=== PATIENT | male | born 1980 | race Two or more races ===

== ENCOUNTER 2019-01-31 09:07 | Inpatient (IN) | payer OTHER ==
[2019-01-31 09:58] VITALS: BMI 30.1
--- NOTE | 2019-01-31 11:36 | HP ---
CIWA Score Nausea/Vomitin Muscle Tremors: 2 Anxiety: 2 Agitation: 2 Paroxysmal Sweats: 1-Minimal Palms Moist Orientation: 0-Oriented Tacttile Disturbances: 1-Very Mild Itch/Numbness Auditory Disturbances: 1-Very Mild Visual Disturbances: 0-None Headache: 2-Mild CIWA-Ar Total Score: 13 - Admission Criteria OASAS Guidelines: Admission for Medically Managed Detox: Requires at least one of the followin. CIWA greater than 12 2. Seizures within the past 24 hours 3. Delirium tremens within the past 24 hours 4. Hallucinations within the past 24 hours 5. Acute intervention needed for co occurring medical disorder 6. Acute intervention needed for co occurring psychiatric disorder 7. Severe withdrawal that cannot be handled at a lower level of care (continued vomiting, continued diarrhea, abnormal vital signs) requiring intravenous medication and/or fluids 8. Admission ROS BHS - HPI Chief Complaint: i need help to stop drinking alcohol,crack,marijuana and k2 Allergies/Adverse Reactions: Allergies Allergy/AdvReac Type Severity Reaction Status Date / Time grape Allergy Verified 01/31/19 12:01 grape juice Allergy Uncoded 01/31/19 10:43 History of Present Illness: this 39 years old male with alcohol,crack,marijuana,k2 dependence,seeking help in detox,withdrawal symptom,never been in detox before, syncope alcohol related nicotine dependence 2 or 3 cigarette anxiety,depression,insomnia,previous psychiatric hospitalization fx of 4th and 5th metacarpal head on Tue01/29/19 seen and treated at [facility],had right hand splint paln for rehab after detox Exam Limitations: No Limitations - Ebola screening Have you traveled outside of the country in the last 21 days: No Have you had contact with anyone from an Ebola affected area: No Have you been sick,other than usual withdrawal symptoms: No Do you have a fever: No - Review of Systems Constitutional: Loss of Appetite, Malaise, Night Sweats, Changes in sleep, Weakness EENT: reports: Nose Congestion Respiratory: reports: No Symptoms reported Cardiac: reports: No Symptoms Reported GI: reports: Nausea, Abdominal cramping : reports: No Symptoms Reported Musculoskeletal: reports: Muscle Pain Integumentary: reports: Dryness Neuro: reports: Headache, Tremors Hematology: reports: Anemia Psychiatric: reports: No Sypmtoms Reported, Judgement Intact, Mood/Affect Appropiate, Orientated x3, Anxious, Depressed, other (insomnia) Other Systems: Reviewed and Negative Patient History - Patient Medical History Hx Anemia: Yes (no medication) Hx Asthma: No Hx Chronic Obstructive Pulmonary Disease (COPD): No Hx Cancer: No Hx Cardiac Disorders: No Hx Congestive Heart Failure: No Hx Hypertension: No Hx Hypercholesterolemia: No Hx Pacemaker: No HX Cerebrovascular Accident: No Hx Seizures: No Hx Dementia: No Hx Diabetes: No Hx Gastrointestinal Disorders: No Hx Liver Disease: No Hx Genitourinary Disorders: No Hx Sexually Transmitted Disorders: No Hx Renal Disease (ESRD): No Hx Thyroid Disease: No Hx Human Immunodeficiency Virus (HIV): No (last 01/30 negative) Hx Hepatitis C: No Hx Depression: Yes (anxiety,insomnia) Hx Suicide Attempt: No Hx Bipolar Disorder: No Hx Schizophrenia: No Other Medical History: hospitalization for depression in the past 3 months at [facility] - Patient Surgical History Past Surgical History: No Other Surgical History: - PPD History Previous Implant?: Yes Documented Results: Negative w/o proof Implanted On Prior [facility] Admission?: No PPD to be Administered?: Yes - Smoking Cessation Smoking history: Current every day smoker Have you smoked in the past 12 months: Yes Aproximately how many cigarettes per day: 3 Hx Chewing Tobacco Use: No Initiated information on smoking cessation: Yes 'Breaking Loose' booklet given: 01/31/19 - Substance & Tx. History Hx Alcohol Use: Yes Hx Substance Use: Yes Substance Use Type: Alcohol, Cocaine, Marijuana Hx Substance Use Treatment: No - Substances Abused Alcohol Route: Oral Frequency: Daily Amount used: 8 beers ( 16 ounces), 1 shot Liquor Age of first use: 13 Date of Last Use: 01/31/19 Marijuana/Hashish Route: Smoking Frequency: 1-2 times per week Amount used: $20 Age of first use: 11 Date of Last Use: 01/30/19 crcack Route: Smoking Frequency: Daily Amount used: $20 Age of first use: 17 Date of Last Use: 01/31/19 K2 Route: Smoking Frequency: 1-3 times last 30 days Amount used: 1 stick Age of first use: 38 Date of Last Use: 01/28/19 Family Disease History - Family Disease History Family Disease History: Other: Father (alcohol) Admission Physical Exam BHS - Vital Signs Vital Signs: Vital Signs - 24 hr 01/31/19 09:56 Temperature 97 F L Pulse Rate 75 Respiratory 19 Rate Blood Pressure 102/60 - Physical General Appearance: Yes: Moderate Distress, Tremorous, Irritable, Sweating, Anxious HEENTM: Yes: Normal ENT Inspection, ROSANGELA, Pharynx Normal Respiratory: Yes: Within Normal Limits, Lungs Clear, Normal Breath Sounds Neck: Yes: Within Normal Limits, Supple, Trachea in good position Breast: Yes: Within Normal Limits Cardiology: Yes: Within Normal Limits, Regular Rhythm, Regular Rate, S1, S2 Abdominal: Yes: Within Normal Limits, Normal Bowel Sounds, Non Tender, Soft Genitourinary: Yes: Within Normal Limits Back: Yes: Muscle Spasm Musculoskeletal: Yes: Back pain, Muscle Pain Extremities: Yes: Tremors, Other (right hand in splint treated for fx of 4th and 5th metacarpal on Tue01/29/19) Neurological: Yes: 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 NML intact, Motor Strength 5/5 Integumentary: Yes: Dry Lymphatic: Yes: Within Normal Limits - Diagnostic (1) Alcohol dependence with uncomplicated withdrawal Current Visit: Yes Status: Acute (2) Cocaine dependence Current Visit: Yes Status: Acute (3) Marijuana dependence Current Visit: Yes Status: Acute (4) Nicotine dependence Current Visit: Yes Status: Acute (5) Anxiety and depression Current Visit: Yes Status: Acute (6) Insomnia Current Visit: Yes Status: Acute (7) History of fracture of hand Current Visit: Yes Status: Acute Cleared for Admission [facility] - Detox or Rehab [facility] Level of Care: Medically Managed Detox Regimen/Protocol: Librium [facility] Breath Alcohol Content Breath Alcohol Content: 0 Urine Drug Screen - Results Drug Screen Negative: No Urine Drug Screen Results: THC-Marijuana, ADEN-Cocaine Inpatient Rehab Admission - Rehab Decision to Admit Inpatient rehab admission?: No
[2019-01-31] MEDS ORDERED: hydrOXYzine PAMOATE 25 MG CAPSULE (FP) PO PRN (11:50)
[2019-01-31] MEDS ORDERED: BISMUTH SUBSALICYLATE 524 MG/30 ML UD PO PRN (11:50)
[2019-01-31] MEDS ORDERED: MAGNESIUM CITRATE 300 ML BOTTLE PO PRN (11:50)
[2019-01-31] MEDS ORDERED: MAGNESIUM HYDROX 2400MG/30ML ORAL SUSPENSION 30 ML CUP PO PRN (11:50)
[2019-01-31] MEDS ORDERED: MELATONIN 5 MG TABLETS PO PRN (11:50)
[2019-01-31] MEDS ORDERED: MAG HYDROX/AL HYDROX/SIMETH 30 ML UNIT-DOSE CUP PO PRN (11:50)
[2019-01-31] MEDS ORDERED: chlordiazePOXIDE HCL 25 MG CAPSULE PO PRN (11:50)
[2019-01-31] MEDS ORDERED: MENTHOL/PHENOL 1 EACH UD MM PRN (11:50)
[2019-01-31] MEDS ORDERED: METHOCARBAMOL 500 MG TABLET PO PRN (11:50)
[2019-01-31] MEDS ORDERED: ACETAMINOPHEN 325 MG TABLET (FP) PO PRN ×2 (11:50)
--- NOTE | 2019-01-31 14:06 | EKG ---
Test Reason : Blood Pressure : / mmHG Vent. Rate : 065 BPM Atrial Rate : 065 BPM P-R Int : 174 ms QRS Dur : 090 ms QT Int : 432 ms P-R-T Axes : 057 032 026 degrees QTc Int : 449 ms NORMAL SINUS RHYTHM NORMAL ECG NO PREVIOUS ECGS AVAILABLE Confirmed by LILLY MACKEY, IBETH ([id number]) on 01/31/2019 2:06:01 PM Referred By: Confirmed By:IBETH CARR MD
[2019-01-31] MEDS: chlordiazePOXIDE HCL 25 MG CAPSULE PO SCH ×2 (18:43→22:46)
[2019-01-31] MEDS: THIAMINE HCL 100 MG TABLET (FP) PO SCH (22:45)
[2019-01-31 23:09] LABS: EPI CELLS 0.2 /HPF (FEW); HYALINE CASTS 1 /hpf (NEGATIVE); URINE APPEARANCE TURBID; URINE BACTERIA 5.4 /hpf (NEGATIVE); URINE BILIRUBIN NEGATIVE (<2.0 mg/dL); URINE COLOR YELLOW; URINE GLUCOSE (UA) NEGATIVE (NEGATIVE); URINE KETONE NEGATIVE (NEGATIVE); URINE LEUK ESTERASE NEGATIVE (NEGATIVE); URINE NITRITE NEGATIVE (NEGATIVE); URINE PROTEIN NEGATIVE (NEGATIVE); URINE RBC 1 /hpf (0-3); URINE UROBILINOGEN 0.2 mg/dL (0.2-1.0); URINE WBC 0 /hpf (3-5)
[2019-02-01] MEDS: chlordiazePOXIDE HCL 25 MG CAPSULE PO SCH ×4 (06:18→22:44)
--- NOTE | 2019-02-01 09:00 | CONSULT ---
[facility] Psychiatric Consult - Data Date of interview: 02/01/19 Admission source: [facility] Identifying data: Patient is a 39 year old single male, without children, unemployed, and is supported by [facility]. This is patient's first admission to detox at [facility]. Patient admitted to for alcohol, cocaine, and marijuana dependence. Substance Abuse History: Substance & Tx. History. Hx Alcohol Use: Yes. Hx Substance Use: Yes. Substance Use Type: Alcohol, Cocaine, Marijuana. Hx Substance Use Treatment: No. - Substances Abused. Alcohol. Route: Oral. Frequency: Daily. Amount used: 8 beers ( 16 ounces), 1 shot Liquor. Age of first use: 13. Date of Last Use: 01/31/19. Marijuana/Hashish. Route: Smoking. Frequency: 1-2 times per week. Amount used: $20. Age of first use: 11. Date of Last Use: 01/30/19. crcack. Route: Smoking. Frequency: Daily. Amount used: $20. Age of first use: 17. Date of Last Use: 01/31/19. K2. Route: Smoking. Frequency: 1-3 times last 30 days. Amount used: 1 stick. Age of first use: 38. Date of Last Use: 01/28/19 Medical History: anemia Psychiatric History: Patient's first psychiatric contact was at 20 years of age after endorsing auditory hallucinations secondary to drug use. He was admitted to [facility] and was prescribed psychotropic medications ( unable to recall names of medications). Patient is also known to [facility] , [facility], [facility] and facilities in [place]. Patient was recently admitted to the [facility] psychiatric unit from december -January after exhibiting paranoid ideation of thinking people were coming after him. Patient is followed by the [facility] in [place]. Self reports diagnosis of Schizoaffective disorder. As per patient he was recently given haldol deconate 100mg on 01/30/19 (appears to be a reliable historian). Patient is prescribed haldol 5mg daily + cogentin 1mg daily + Seroquel 100mg HS. Patient denies h/o suicide attempt. At present, patient reports stable mood and denies auditory/ visual hallucinations and paranoid ideation. No psychosis noted. Physical/Sexual Abuse/Trauma History: There is a history of trauma but patient refused to elaborate. Mental Status Exam - Mental Status Exam Alert and Oriented to: Time, Place, Person Cognitive Function: Good Patient Appearance: Well Groomed Mood: Euthymic Affect: Appropriate Patient Behavior: Appropriate, Cooperative Speech Pattern: Clear, Appropriate Voice Loudness: Normal Thought Process: Intact, Goal Oriented Thought Disorder: Not Present Hallucinations: Denies Suicidal Ideation: Denies Homicidal Ideation: Denies Insight/Judgement: Poor Sleep: Fair Appetite: Fair Muscle strength/Tone: Normal Gait/Station: Normal Psychiatric Findings - Problem List ([place] 1, 2,3) (1) Schizoaffective disorder Current Visit: Yes Status: Chronic (2) Alcohol dependence with uncomplicated withdrawal Current Visit: Yes Status: Acute (3) Marijuana dependence Current Visit: Yes Status: Chronic (4) Nicotine dependence Current Visit: Yes Status: Acute - Initial Treatment Plan Initial Treatment Plan: Psychoeducation provided. Detoxification in progress. Will order haldol 5mg daily + Cogentin 1mg daily + Seroquel 100mg HS. Benefits and side effects discussed. Verbal consent given.
[2019-02-01] MEDS: PRENATAL VITAMINS W/ FOLIC ACID TABLET (FP) PO SCH (10:06)
[2019-02-01] MEDS: BENZTROPINE MESYLATE 1 MG TABLET (FP) PO SCH (10:06)
[2019-02-01] MEDS: HALOPERIDOL 5 MG TABLET (FP) PO SCH (10:06)
[2019-02-01 11:04] LABS: HEMATOCRIT 34.9 % (35.4-49); HEMOGLOBIN 12.1 GM/dL (11.7-16.9); MCH 32.2 pg (25.7-33.7); MCHC 34.7 g/dl (32.0-35.9); MEAN CELL VOLUME 92.9 fl (80-96); MEAN PLT VOLUME 9.5 fl (7.5-11.1); PLATELET COUNT 172 K/MM3 (134-434); RBC 3.75 M/mm3 (4.00-5.60); RDW 13.9 % (11.9-15.9); WHITE BLOOD COUNT 4.6 K/mm3 (4.0-10.0)
[2019-02-01 11:54] LABS: SICKLE CELL SCREEN NEGATIVE (NEGATIVE)
[2019-02-01 13:21] LABS: ALBUMIN 3.9 g/dl (3.4-5.0); ALK PHOS 61 U/L (45-117); BILIRUBIN,TOTAL < 0.1 mg/dL (0.2-1); BLOOD UREA NITROGEN 13 mg/dL (7-18); CALCIUM 8.6 mg/dL (8.5-10.1); CHLORIDE 109 mmol/L (98-107); CREATININE 0.9 mg/dL (0.55-1.3); GLUCOSE,RANDOM 93 mg/dL (74-106); POTASSIUM 4.3 mmol/L (3.5-5.1); SGPT/ALT 20 U/L (13-61); SODIUM 142 mmol/L (136-145); TOT PROT 6.8 g/dl (6.4-8.2)
[2019-02-01 13:55] LABS: ANION GAP 6 MMOL/L (8-16); CO2 27 mmol/L (21-32); SGOT/AST 17 U/L (15-37)
--- NOTE | 2019-02-01 14:06 | PN ---
[facility] CIWA - CIWA Score Nausea/Vomitin-No Nausea/No Vomiting Muscle Tremors: 3 Anxiety: 2 Agitation: 3 Paroxysmal Sweats: 1-Minimal Palms Moist Orientation: 0-Oriented Tacttile Disturbances: 0-None Auditory Disturbances: 0-None Visual Disturbances: 0-None Headache: 1-Very Mild CIWA-Ar Total Score: 10 S Progress Note (SOAP) Subjective: mild tremor otherwise doing well social with peers in day room Objective: 02/01/19 14:05 Vital Signs Temperature 97.4 F L 02/01/19 13:30 Pulse Rate 76 02/01/19 13:30 Respiratory Rate 18 02/01/19 13:30 Blood Pressure 114/65 02/01/19 13:30 O2 Sat by Pulse Oximetry (%) Laboratory Last Values WBC 4.6 K/mm3 (4.0-10.0) 02/01/19 06:30 RBC 3.75 M/mm3 (4.00-5.60) L 02/01/19 06:30 Hgb 12.1 GM/dL (11.7-16.9) 02/01/19 06:30 Hct 34.9 % (35.4-49) L 02/01/19 06:30 MCV 92.9 fl (80-96) 02/01/19 06:30 MCH 32.2 pg (25.7-33.7) 02/01/19 06:30 MCHC 34.7 g/dl (32.0-35.9) 02/01/19 06:30 RDW 13.9 % (11.9-15.9) 02/01/19 06:30 Plt Count 172 K/MM3 (134-434) 02/01/19 06:30 MPV 9.5 fl (7.5-11.1) 02/01/19 06:30 Sickle Cell Screen Negative (NEGATIVE) 02/01/19 06:30 Sodium 142 mmol/L (136-145) 02/01/19 06:30 Potassium 4.3 mmol/L (3.5-5.1) 02/01/19 06:30 Chloride 109 mmol/L (98-107) H 02/01/19 06:30 Carbon Dioxide 27 mmol/L (21-32) 02/01/19 06:30 Anion Gap 6 MMOL/L (8-16) L 02/01/19 06:30 BUN 13 mg/dL (7-18) 02/01/19 06:30 Creatinine 0.9 mg/dL (0.55-1.3) 02/01/19 06:30 Creat Clearance w eGFR 94.95 (>60) 02/01/19 06:30 Random Glucose 93 mg/dL (74-106) 02/01/19 06:30 Calcium 8.6 mg/dL (8.5-10.1) 02/01/19 06:30 Total Bilirubin < 0.1 mg/dL (0.2-1) L 02/01/19 06:30 AST 17 U/L (15-37) 02/01/19 06:30 ALT 20 U/L (13-61) 02/01/19 06:30 Alkaline Phosphatase 61 U/L (45-117) 02/01/19 06:30 Total Protein 6.8 g/dl (6.4-8.2) 02/01/19 06:30 Albumin 3.9 g/dl (3.4-5.0) 02/01/19 06:30 Urine Color Yellow 01/31/19 18:35 Urine Appearance Turbid 01/31/19 18:35 Urine pH 6.0 (5.0-8.0) 01/31/19 18:35 Ur Specific [place] 1.020 (1.010-1.035) 01/31/19 18:35 Urine Protein Negative (NEGATIVE) 01/31/19 18:35 Urine Glucose (UA) Negative (NEGATIVE) 01/31/19 18:35 Urine Ketones Negative (NEGATIVE) 01/31/19 18:35 Urine Blood Negative (NEGATIVE) 01/31/19 18:35 Urine Nitrite Negative (NEGATIVE) 01/31/19 18:35 Urine Bilirubin Negative (<2.0 mg/dL) 01/31/19 18:35 Urine Urobilinogen 0.2 mg/dL (0.2-1.0) 01/31/19 18:35 Ur Leukocyte Esterase Negative (NEGATIVE) 01/31/19 18:35 Urine WBC (Auto) 0 /hpf (3-5) 01/31/19 18:35 Urine RBC (Auto) 1 /hpf (0-3) 01/31/19 18:35 Urine Casts (Auto) 1 /hpf (NEGATIVE) 01/31/19 18:35 U Epithel Cells (Auto) 0.2 /HPF (FEW) 01/31/19 18:35 Urine Bacteria (Auto) 5.4 /hpf (NEGATIVE) 01/31/19 18:35 RPR Titer Nonreactive (NONREACTIVE) 02/01/19 06:30 HIV 1&2 Antibody Screen Negative 01/31/19 12:30 HIV P24 Antigen Negative 01/31/19 12:30 lab noted Assessment: 02/01/19 14:06 withdrawal sx Plan: continue detox
[2019-02-01] MEDS: THIAMINE HCL 100 MG TABLET (FP) PO SCH (22:44)
[2019-02-01] MEDS: QUEtiapine FUMARATE 100 MG TABLET (FP) PO SCH (22:44)
[2019-02-01] MEDS: IBUPROFEN 400 MG TABLET (FP) PO PRN (23:04)
[2019-02-02] MEDS: chlordiazePOXIDE HCL 25 MG CAPSULE PO SCH ×2 (07:24→10:16)
[2019-02-02] MEDS: IBUPROFEN 400 MG TABLET (FP) PO PRN (10:15)
[2019-02-02] MEDS: PRENATAL VITAMINS W/ FOLIC ACID TABLET (FP) PO SCH (10:15)
[2019-02-02] MEDS: HALOPERIDOL 5 MG TABLET (FP) PO SCH (10:15)
[2019-02-02] MEDS: BENZTROPINE MESYLATE 1 MG TABLET (FP) PO SCH (10:16)
--- NOTE | 2019-02-02 16:54 | PN ---
S CIWA - CIWA Score Nausea/Vomitin-No Nausea/No Vomiting Muscle Tremors: 2 Anxiety: 2 Agitation: 1-Slight > Activity Paroxysmal Sweats: No Perspiration Orientation: 2-Disoriented Date<2 days Tacttile Disturbances: 2-Mild Itch/Numbness/Burn Auditory Disturbances: 1-Very Mild Visual Disturbances: 2-Mild Sensitivity Headache: 0-None Present CIWA-Ar Total Score: 12 BHS Progress Note (SOAP) Subjective: Tremors, Anxious. Objective: PATIENT A & O X 2 (UNCERTAIN ABOUT CURRENT DAY / DATE). PATIENT OBSERVED AMBULATING ON UNIT. IN NO ACUTE DISTRESS. 02/02/19 16:55 Vital Signs Temperature 98.4 F 02/02/19 13:51 Pulse Rate 93 H 02/02/19 13:51 Respiratory Rate 16 02/02/19 13:51 Blood Pressure 100/55 L 02/02/19 13:51 O2 Sat by Pulse Oximetry (%) Laboratory Tests 01/31/19 01/31/19 02/01/19 12:30 18:35 06:30 WBC 4.6 RBC 3.75 L Hgb 12.1 Hct 34.9 L MCV 92.9 MCH 32.2 MCHC 34.7 RDW 13.9 Plt Count 172 MPV 9.5 Sickle Cell Screen Negative Sodium Potassium Chloride Carbon Dioxide Anion Gap BUN Creatinine Creat Clearance w eGFR Random Glucose Calcium Total Bilirubin AST ALT Alkaline Phosphatase Total Protein Albumin Urine Color Yellow Urine Appearance Turbid Urine pH 6.0 Ur Specific [place] 1.020 Urine Protein Negative Urine Glucose (UA) Negative Urine Ketones Negative Urine Blood Negative Urine Nitrite Negative Urine Bilirubin Negative Urine Urobilinogen 0.2 Ur Leukocyte Esterase Negative Urine WBC (Auto) 0 Urine RBC (Auto) 1 Urine Casts (Auto) 1 U Epithel Cells (Auto) 0.2 Urine Bacteria (Auto) 5.4 RPR Titer HIV 1&2 Antibody Screen Negative HIV P24 Antigen Negative 02/01/19 02/01/19 06:30 06:30 WBC RBC Hgb Hct MCV MCH MCHC RDW Plt Count MPV Sickle Cell Screen Sodium 142 Potassium 4.3 Chloride 109 H Carbon Dioxide 27 Anion Gap 6 L BUN 13 Creatinine 0.9 Creat Clearance w eGFR 94.95 Random Glucose 93 Calcium 8.6 Total Bilirubin < 0.1 L AST 17 ALT 20 Alkaline Phosphatase 61 Total Protein 6.8 Albumin 3.9 Urine Color Urine Appearance Urine pH Ur Specific [place] Urine Protein Urine Glucose (UA) Urine Ketones Urine Blood Urine Nitrite Urine Bilirubin Urine Urobilinogen Ur Leukocyte Esterase Urine WBC (Auto) Urine RBC (Auto) Urine Casts (Auto) U Epithel Cells (Auto) Urine Bacteria (Auto) RPR Titer Nonreactive HIV 1&2 Antibody Screen HIV P24 Antigen LABS NOTED. Assessment: 02/02/19 16:56 WITHDRAWAL SYMPTOMS. HYPOTENSION. Plan: CONTINUE DETOX. INCREASE DAILY PO FLUID INTAKE.
[2019-02-02] MEDS ORDERED: chlordiazePOXIDE HCL 10 MG CAPSULE PO PRN (17:00)
[2019-02-02] MEDS: chlordiazePOXIDE HCL 10 MG CAPSULE PO SCH ×2 (17:22→22:08)
[2019-02-02] MEDS: THIAMINE HCL 100 MG TABLET (FP) PO SCH (22:08)
[2019-02-02] MEDS: QUEtiapine FUMARATE 100 MG TABLET (FP) PO SCH (22:08)
[2019-02-03] MEDS: IBUPROFEN 400 MG TABLET (FP) PO PRN (04:17)
[2019-02-03] MEDS: chlordiazePOXIDE HCL 10 MG CAPSULE PO SCH ×3 (05:20→17:45)
[2019-02-03] MEDS: PRENATAL VITAMINS W/ FOLIC ACID TABLET (FP) PO SCH (10:38)
[2019-02-03] MEDS: HALOPERIDOL 5 MG TABLET (FP) PO SCH (10:38)
[2019-02-03] MEDS: BENZTROPINE MESYLATE 1 MG TABLET (FP) PO SCH (10:38)
--- NOTE | 2019-02-03 14:48 | PN ---
BHS Progress Note (SOAP) Subjective: Tremors, Anxious, Fatigue. Objective: PATIENT A & O X 3, OBSERVED AMBULATING ON UNIT. IN NO ACUTE DISTRESS. 02/03/19 14:47 Vital Signs Temperature 98.4 F 02/03/19 09:35 Pulse Rate 85 02/03/19 13:33 Respiratory Rate 16 02/03/19 13:33 Blood Pressure 97/64 02/03/19 13:33 O2 Sat by Pulse Oximetry (%) Laboratory Tests 01/31/19 01/31/19 02/01/19 12:30 18:35 06:30 WBC 4.6 RBC 3.75 L Hgb 12.1 Hct 34.9 L MCV 92.9 MCH 32.2 MCHC 34.7 RDW 13.9 Plt Count 172 MPV 9.5 Sickle Cell Screen Negative Sodium Potassium Chloride Carbon Dioxide Anion Gap BUN Creatinine Creat Clearance w eGFR Random Glucose Calcium Total Bilirubin AST ALT Alkaline Phosphatase Total Protein Albumin Urine Color Yellow Urine Appearance Turbid Urine pH 6.0 Ur Specific [place] 1.020 Urine Protein Negative Urine Glucose (UA) Negative Urine Ketones Negative Urine Blood Negative Urine Nitrite Negative Urine Bilirubin Negative Urine Urobilinogen 0.2 Ur Leukocyte Esterase Negative Urine WBC (Auto) 0 Urine RBC (Auto) 1 Urine Casts (Auto) 1 U Epithel Cells (Auto) 0.2 Urine Bacteria (Auto) 5.4 RPR Titer HIV 1&2 Antibody Screen Negative HIV P24 Antigen Negative 02/01/19 02/01/19 06:30 06:30 WBC RBC Hgb Hct MCV MCH MCHC RDW Plt Count MPV Sickle Cell Screen Sodium 142 Potassium 4.3 Chloride 109 H Carbon Dioxide 27 Anion Gap 6 L BUN 13 Creatinine 0.9 Creat Clearance w eGFR 94.95 Random Glucose 93 Calcium 8.6 Total Bilirubin < 0.1 L AST 17 ALT 20 Alkaline Phosphatase 61 Total Protein 6.8 Albumin 3.9 Urine Color Urine Appearance Urine pH Ur Specific [place] Urine Protein Urine Glucose (UA) Urine Ketones Urine Blood Urine Nitrite Urine Bilirubin Urine Urobilinogen Ur Leukocyte Esterase Urine WBC (Auto) Urine RBC (Auto) Urine Casts (Auto) U Epithel Cells (Auto) Urine Bacteria (Auto) RPR Titer Nonreactive HIV 1&2 Antibody Screen HIV P24 Antigen LABS NOTED. Assessment: 02/03/19 14:47 WITHDRAWAL SYMPTOMS. HYPOTENSION. 02/03/19 14:48 Plan: CONTINUE DETOX. INCREASE DAILY PO FLUID INTAKE. ENCOURAGE AMBULATION.
[2019-02-03] MEDS: QUEtiapine FUMARATE 100 MG TABLET (FP) PO SCH (22:39)
[2019-02-03] MEDS: THIAMINE HCL 100 MG TABLET (FP) PO SCH (22:39)
[2019-02-04] MEDS: chlordiazePOXIDE HCL 10 MG CAPSULE PO SCH (06:47)
--- NOTE | 2019-02-04 09:41 | DS ---
[facility] Detox Discharge Summary Admission Date: 01/31/19 Discharge Date: 02/04/19 - History Present History: Alcohol Dependence Additional Comments: 39 years old male admitted on 01/31/19 for alcohol withdrawal stabilization completed alcohol detox regimen aftercare [facility] orthopedic follow up Pertinent Past History: patient reporting that he fracture his right 5th finger on 01/29/19 treated at [facility] [place] half soft cast with lou bandage, denies pain patient refuses open the bandage for fingers capillary refilled examine patient stated that he is going back to [facility] [place] orthopedic for follow up - Physical Exam Results Vital Signs: Vital Signs Temperature 97.9 F 02/04/19 06:28 Pulse Rate 73 02/04/19 06:28 Respiratory Rate 18 02/04/19 06:30 Blood Pressure 99/55 L 02/04/19 06:28 O2 Sat by Pulse Oximetry (%) Pertinent Admission Physical Exam Findings: alcohol withdrawal sx Laboratory Last Values WBC 4.6 K/mm3 (4.0-10.0) 02/01/19 06:30 RBC 3.75 M/mm3 (4.00-5.60) L 02/01/19 06:30 Hgb 12.1 GM/dL (11.7-16.9) 02/01/19 06:30 Hct 34.9 % (35.4-49) L 02/01/19 06:30 MCV 92.9 fl (80-96) 02/01/19 06:30 MCH 32.2 pg (25.7-33.7) 02/01/19 06:30 MCHC 34.7 g/dl (32.0-35.9) 02/01/19 06:30 RDW 13.9 % (11.9-15.9) 02/01/19 06:30 Plt Count 172 K/MM3 (134-434) 02/01/19 06:30 MPV 9.5 fl (7.5-11.1) 02/01/19 06:30 Sickle Cell Screen Negative (NEGATIVE) 02/01/19 06:30 Sodium 142 mmol/L (136-145) 02/01/19 06:30 Potassium 4.3 mmol/L (3.5-5.1) 02/01/19 06:30 Chloride 109 mmol/L (98-107) H 02/01/19 06:30 Carbon Dioxide 27 mmol/L (21-32) 02/01/19 06:30 Anion Gap 6 MMOL/L (8-16) L 02/01/19 06:30 BUN 13 mg/dL (7-18) 02/01/19 06:30 Creatinine 0.9 mg/dL (0.55-1.3) 02/01/19 06:30 Creat Clearance w eGFR 94.95 (>60) 02/01/19 06:30 Random Glucose 93 mg/dL (74-106) 02/01/19 06:30 Calcium 8.6 mg/dL (8.5-10.1) 02/01/19 06:30 Total Bilirubin < 0.1 mg/dL (0.2-1) L 02/01/19 06:30 AST 17 U/L (15-37) 02/01/19 06:30 ALT 20 U/L (13-61) 02/01/19 06:30 Alkaline Phosphatase 61 U/L (45-117) 02/01/19 06:30 Total Protein 6.8 g/dl (6.4-8.2) 02/01/19 06:30 Albumin 3.9 g/dl (3.4-5.0) 02/01/19 06:30 Urine Color Yellow 01/31/19 18:35 Urine Appearance Turbid 01/31/19 18:35 Urine pH 6.0 (5.0-8.0) 01/31/19 18:35 Ur Specific [place] 1.020 (1.010-1.035) 01/31/19 18:35 Urine Protein Negative (NEGATIVE) 01/31/19 18:35 Urine Glucose (UA) Negative (NEGATIVE) 01/31/19 18:35 Urine Ketones Negative (NEGATIVE) 01/31/19 18:35 Urine Blood Negative (NEGATIVE) 01/31/19 18:35 Urine Nitrite Negative (NEGATIVE) 01/31/19 18:35 Urine Bilirubin Negative (<2.0 mg/dL) 01/31/19 18:35 Urine Urobilinogen 0.2 mg/dL (0.2-1.0) 01/31/19 18:35 Ur Leukocyte Esterase Negative (NEGATIVE) 01/31/19 18:35 Urine WBC (Auto) 0 /hpf (3-5) 01/31/19 18:35 Urine RBC (Auto) 1 /hpf (0-3) 01/31/19 18:35 Urine Casts (Auto) 1 /hpf (NEGATIVE) 01/31/19 18:35 U Epithel Cells (Auto) 0.2 /HPF (FEW) 01/31/19 18:35 Urine Bacteria (Auto) 5.4 /hpf (NEGATIVE) 01/31/19 18:35 RPR Titer Nonreactive (NONREACTIVE) 02/01/19 06:30 HIV 1&2 Antibody Screen Negative 01/31/19 12:30 HIV P24 Antigen Negative 01/31/19 12:30 lab noted - Treatment Hospital Course: Detox Protocol Followed, Detoxed Safely, Responded well, Discharged Condition Good, Rehab Referral Accepted Patient has Accepted a Rehab Referral to: [facility] orthopedic - Medication Discharge Medications: Ambulatory Orders Benztropine Mesylate [Cogentin -] 0.5 mg PO DAILY 01/31/19 Haloperidol Decanoate [Haldol Decanoate (Long-Acting) -] 100 mg IM MONTHLY 01/31 Haloperidol [Haldol -] 5 mg PO DAILY 01/31/19 Quetiapine Fumarate [Seroquel] 100 mg PO HS 01/31/19 - Diagnosis (1) Alcohol dependence with uncomplicated withdrawal Status: Acute (2) Nicotine dependence Status: Acute Qualifiers: Nicotine product type: cigarettes Substance use status: in withdrawal Qualified Code(s): F17.213 - Nicotine dependence, cigarettes, with withdrawal - AMA Did Patient Leave Against Medical Advice: No
[2019-02-04 09:44] VITALS: BP 96/65; PULSE 89; TEMP 98.5
[2019-02-04] MEDS: HALOPERIDOL 5 MG TABLET (FP) PO SCH (09:45)
[2019-02-04] MEDS: BENZTROPINE MESYLATE 1 MG TABLET (FP) PO SCH (09:45)
[2019-02-04] MEDS: PRENATAL VITAMINS W/ FOLIC ACID TABLET (FP) PO SCH (09:45)
== END 2019-02-04 10:10 | disposition home or self-care (01) | DRG 774 ==
LOC: YASAS 09:07 → Y3N 11:42
PROVIDERS: ADMIT Surgery; ATTEND Surgery
PROC: HZ2ZZZZ Detoxification Services for Substance Abuse Treatment (ICD-10-PCS; principal; 2019-01-31)
DX: F10.230 Alcohol dependence with withdrawal, uncomplicated (principal); F14.20 Cocaine dependence, uncomplicated; F12.20 Cannabis dependence, uncomplicated; F19.10 Other psychoactive substance abuse, uncomplicated; F17.213 Nicotine dependence, cigarettes, with withdrawal; F25.9 Schizoaffective disorder, unspecified; F41.8 Other specified anxiety disorders; F32.9 Major depressive disorder, single episode, unspecified; I95.9 Hypotension, unspecified; D64.9 Anemia, unspecified; S62.606D Fracture of unspecified phalanx of right little finger, subsequent encounter for fracture with routine healing; X58.XXXD Exposure to other specified factors, subsequent encounter
CPT/HCPCS: 36415; 80053; 81003; 85027; 85660; 86593; 87389; 93005; 93010